=== PATIENT | female | born 1930 | race Caucasian/White ===

== ENCOUNTER 2016-04-14 08:00 | Outpatient (CLI) | payer MEDICARE, OTHER | END 2016-04-14 23:59 | DX: E87.5 Hyperkalemia (principal); N30.00 Acute cystitis without hematuria ==

== ENCOUNTER 2016-04-24 08:00 | Outpatient (CLI) | payer MEDICARE, OTHER | END 2016-04-24 08:01 | disposition home or self-care (01) | DX: N30.00 Acute cystitis without hematuria (principal) ==

== ENCOUNTER 2016-05-15 11:43 | Outpatient (CLI) | payer MEDICARE, OTHER | END 2016-05-15 11:44 | disposition home or self-care (01) | DX: R35.1 Nocturia (principal) ==

== ENCOUNTER 2016-06-25 14:45 | Outpatient (CLI) | payer MEDICARE, OTHER | END 2016-06-25 14:46 | disposition home or self-care (01) | DX: R41.82 Altered mental status, unspecified (principal) ==

== ENCOUNTER 2016-07-20 06:38 | Outpatient (CLI) | payer MEDICARE, OTHER | END 2016-07-20 06:39 | disposition home or self-care (01) | DX: R41.82 Altered mental status, unspecified (principal) ==

== ENCOUNTER 2016-08-06 16:00 | Outpatient (CLI) | payer MEDICARE, OTHER | END 2016-08-06 16:01 | DX: R35.0 Frequency of micturition (principal); R32 Unspecified urinary incontinence ==

== ENCOUNTER 2016-10-05 08:00 | Outpatient (CLI) | payer MEDICARE, OTHER ==
[2016-10-05 18:47] LABS: ALBUMIN/GLOBULIN RATIO 0.9 (1.0-2.2); BILIRUBIN,TOTAL 0.3 mg/dL (0.2-1.0); CALCIUM 8.6 mg/dL (8.5-10.3); CREATININE 2.2 mg/dL (0.4-1.0); TOTAL PROTEIN 6.7 g/dL (6.7-8.2)
[2016-10-05 19:05] LABS: BASOPHILS # (AUTO) 0.1 10^3/uL (0.0-0.1); BASOPHILS % (AUTO) 0.6 %; EOSINOPHILS # (AUTO) 0.1 10^3/uL (0.0-0.7); EOSINOPHILS % (AUTO) 0.8 %; HCT - HEMATOCRIT 32.5 % (37.0-47.0); HGB - HEMOGLOBIN 10.5 g/dL (12.0-16.0); LYMPHOCYTES # (AUTO) 3.8 10^3/uL (1.5-3.5); LYMPHOCYTES % (AUTO) 32.8 %; MEAN CORPUSCULAR HEMOGLOBIN 27.2 pg (27.0-31.0); MEAN CORPUSCULAR HGB CONC 32.4 g/dL (32.0-36.0); MEAN CORPUSCULAR VOLUME 83.9 fL (81.0-99.0); MEAN PLATELET VOLUME 7.1 fL (7.9-10.8); MONOCYTES # (AUTO) 0.5 10^3/uL (0.0-1.0); MONOCYTES % (AUTO) 4.4 %; NEUTROPHILS # (AUTO) 7.1 10^3/uL (1.5-6.6); NEUTROPHILS % (AUTO) 61.4 %; RED BLOOD COUNT 3.88 10^6/uL (4.20-5.40); RED CELL DISTRIBUTION WIDTH 22.1 % (12.0-15.0); UNCORRECTED WHITE BLOOD COUNT 11.6 x10^3/uL; WHITE BLOOD COUNT 11.6 x10^3/uL (4.8-10.8)
== END 2016-10-05 08:01 | disposition home or self-care (01) ==
LOC: LAB.R 08:00
PROVIDERS: ATTEND Physician Assistant Medical
DX: R32 Unspecified urinary incontinence (principal)
CPT/HCPCS: 80053; 84443; 85025; 87077; 87086

== ENCOUNTER 2016-10-27 08:00 | Outpatient (CLI) | payer MEDICARE, OTHER ==
[2016-10-27 19:05] LABS: BASOPHILS # (AUTO) 0.1 10^3/uL (0.0-0.1); BASOPHILS % (AUTO) 0.7 %; EOSINOPHILS # (AUTO) 0.3 10^3/uL (0.0-0.7); EOSINOPHILS % (AUTO) 2.4 %; HCT - HEMATOCRIT 33.3 % (37.0-47.0); HGB - HEMOGLOBIN 10.5 g/dL (12.0-16.0); LYMPHOCYTES # (AUTO) 3.4 10^3/uL (1.5-3.5); LYMPHOCYTES % (AUTO) 27.8 %; MEAN CORPUSCULAR HEMOGLOBIN 27.1 pg (27.0-31.0); MEAN CORPUSCULAR HGB CONC 31.5 g/dL (32.0-36.0); MEAN CORPUSCULAR VOLUME 86.1 fL (81.0-99.0); MEAN PLATELET VOLUME 7.8 fL (7.9-10.8); MONOCYTES # (AUTO) 0.8 10^3/uL (0.0-1.0); MONOCYTES % (AUTO) 6.2 %; NEUTROPHILS # (AUTO) 7.6 10^3/uL (1.5-6.6); NEUTROPHILS % (AUTO) 62.9 %; RED BLOOD COUNT 3.87 10^6/uL (4.20-5.40); RED CELL DISTRIBUTION WIDTH 18.3 % (12.0-15.0); UNCORRECTED WHITE BLOOD COUNT 12.1 x10^3/uL; WHITE BLOOD COUNT 12.1 x10^3/uL (4.8-10.8)
[2016-10-27 19:19] LABS: ALBUMIN/GLOBULIN RATIO 0.8 (1.0-2.2); BILIRUBIN,TOTAL 0.3 mg/dL (0.2-1.0); BUN - BLOOD UREA NITROGEN 28 mg/dL (6-20); CALCIUM 8.8 mg/dL (8.5-10.3); CARBON DIOXIDE - CO2 21 mmol/L (21-32); CHLORIDE 102 mmol/L (101-111); CREATININE 1.9 mg/dL (0.4-1.0); GFR - MDRD 25 (>89); GLUCOSE 102 mg/dL (70-100); POTASSIUM 4.4 mmol/L (3.5-5.0); SODIUM 133 mmol/L (135-145); TOTAL PROTEIN 6.6 g/dL (6.7-8.2)
== END 2016-10-27 08:01 | disposition home or self-care (01) ==
LOC: LAB.R 08:00
PROVIDERS: ATTEND Physician Assistant Medical
DX: R10.31 Right lower quadrant pain (principal); N18.9 Chronic kidney disease, unspecified; I12.9 Hypertensive chronic kidney disease with stage 1 through stage 4 chronic kidney disease, or unspecified chronic kidney disease
CPT/HCPCS: 80053; 85025

== ENCOUNTER 2016-10-27 08:00 | Outpatient (CLI) | payer MEDICARE, OTHER | END 2016-10-27 08:01 | disposition home or self-care (01) | LOC: LAB.R 08:00 | PROVIDERS: ATTEND Physician Assistant Medical | DX: R10.31 Right lower quadrant pain (principal); Z87.440 Personal history of urinary (tract) infections | CPT/HCPCS: 87086 ==

== ENCOUNTER 2016-11-13 12:10 | Outpatient (CLI) | payer MEDICARE, OTHER ==
--- NOTE | 2016-11-13 15:52 | XRAY Report ---
RIGHT HIP AND PELVIS: 11/13/2016 CLINICAL INDICATION: Right-sided pain. COMPARISON: 10/05/2015 FINDINGS: Frontal view of the hips and pelvis and frogleg lateral view of the right hip demonstrate a stable appearance of the right hip replacement. There is no evidence of acute fracture. Degenerat emerita changes are seen in the sacroiliac joints, and a left hip replacement is also noted. IMPRESSION: STABLE APPEARANCE OF RIGHT HIP REPLACEMENT. NO EVIDENCE OF FRACTURE OR HARDWARE COMPLIC ATION. JOB #: [id number] EXT JOB #:[id number]
== END 2016-11-13 12:11 | disposition home or self-care (01) ==
LOC: DI 12:10
PROVIDERS: ATTEND Nurse Practitioner Primary Care
DX: R10.31 Right lower quadrant pain (principal)

== ENCOUNTER 2016-11-24 14:29 | Outpatient (CLI) | payer MEDICARE, OTHER ==
--- NOTE | 2016-11-24 20:23 | CT Report ---
CT ABDOMEN AND PELVIS WITHOUT CONTRAST: 11/24/2016 CLINICAL INDICATION: Right groin pain, history of UTIs, chronic renal insufficiency. Axial CT images of the abdomen and pelvis were obtained without oral or intravenous contrast. In accordance with CT protocol optimization, one or more of the following dose reduction techniques w ere utilized for this exam: automated exposure control, adjustment of mA and/or KV based on patient size, or use of iterative reconstructive technique. No previous CT is available for comparison. Limited evaluation of the lung bases demonstrates a nodule in the medial right middle lobe, measuring 1.3 x 0.8 mm. Minimal basilar atelectasis is also seen. ABDOMEN: Postoperative changes of cholecystectomy are present. The liver, spleen, pancreas, and adr enal glands appear unremarkable. There is right worse than left hydronephrosis and hydroureter. No definite nephrolithiasis is seen. No bowel dilatation, free gas, or free fluid is present. There is a small periumbilical hernia, containing a nonobstructive loop of small bowel. PELVIS: The majority of the pelvis is obscured by streak artifact from bilateral hip replacements. The etiology of bilateral hydronephrosis is unclear. 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 No definite pelvic adenopathy is appreciated, but v isualization is limited. Osseous structures demonstrate degenerative changes and changes of bilateral hip replacements. There are also multilevel compression fractures with vertebroplasties. IMPRESSION: 1. RIGHT WORSE THAN LEFT HYDRONEPHROSIS AND HYDROURETER. ETIOLOGY IS UNCERTAIN. GIVEN THE METALLIC ARTIFACT FROM BILATERAL HIP REPLACEMENTS, A CT IVP WOULD NOT LIKELY BE USEFUL. CONSIDER CYSTOSCOPY WITH POSSIBLE RETROGRADE URETEROGRAMS FOR FURTHER EVALUATION. 2. RIGHT MIDDLE LOBE PULMONARY NODULE. CONSIDER FURTHER EVALUATION WITH PET/CT TO EVALUATE FOR META BOLIC ACTIVITY. JOB #: [id number] EXT JOB #:[id number]
== END 2016-11-24 14:30 | disposition home or self-care (01) ==
LOC: DI 14:29
PROVIDERS: ATTEND Physician Assistant Medical
DX: N13.30 Unspecified hydronephrosis (principal); N13.4 Hydroureter; R91.1 Solitary pulmonary nodule
CPT/HCPCS: 74176

== ENCOUNTER 2016-12-09 14:42 | Outpatient (CLI) | payer MEDICARE, OTHER ==
[2016-12-09 15:52] LABS: ALBUMIN/GLOBULIN RATIO 0.8 (1.0-2.2); BILIRUBIN,TOTAL 0.4 mg/dL (0.2-1.0); CALCIUM 8.9 mg/dL (8.5-10.3); CREATININE 1.7 mg/dL (0.4-1.0); POTASSIUM 4.2 mmol/L (3.5-5.0); TOTAL PROTEIN 6.8 g/dL (6.7-8.2)
== END 2016-12-09 14:43 | disposition home or self-care (01) ==
LOC: LAB 14:42
PROVIDERS: ATTEND Physician Assistant
DX: N13.30 Unspecified hydronephrosis (principal); N18.9 Chronic kidney disease, unspecified
CPT/HCPCS: 36415; 80053

== ENCOUNTER 2017-01-18 16:54 | Outpatient (CLI) | payer MEDICARE, OTHER | END 2017-01-18 16:55 | disposition EMS.NT | LOC: EMS 16:54 | PROVIDERS: ATTEND Surgery | DX: Z03.89 Encounter for observation for other suspected diseases and conditions ruled out (principal); W01.0XXA Fall on same level from slipping, tripping and stumbling without subsequent striking against object, initial encounter; Y93.01 Activity, walking, marching and hiking; Y92.009 Unspecified place in unspecified non-institutional (private) residence as the place of occurrence of the external cause ==